=== PATIENT | male | born 1980 | race African-American/Black ===

== ENCOUNTER 2021-08-20 17:42 | Emergency (ER) | payer OTHER ==
[~2021-08-20] VITALS: Ht 172.7 cm; Wt 60.8 kg
[2021-08-20 18:13] LABS: BASO # 0.03 K/mm3 (0.02-0.10); EOS # 0.08 K/mm3 (0.04-0.40); EOS % 0.4 % (0.0-4.0); HEMATOCRIT 44.8 % (42.0-52.0); HEMOGLOBIN 15.1 g/dL (13.5-18.0); LYMPH# 2.27 K/mm3 (1.50-4.00); MEAN CELL VOLUME 100 fl (78-100); MEAN CORPUSCULAR HEMOGLOBIN 34 pg (27-31); MEAN CORPUSCULAR HGB CONC 34 g/dL (33-37); MEAN PLATELET VOLUME 9.3 fl (7.4-10.4); MONO # 1.47 K/mm3 (0.20-0.80); NEU # 15.78 K/mm3 (1.40-6.50); PLATELET COUNT 264 K/mm3 (130-400); RED BLOOD COUNT 4.47 M/mm3 (4.20-5.60); RED CELL DISTRIBUTION WIDTH 12.7 % (11.5-14.5); WHITE BLOOD COUNT 19.7 K/mm3 (4.8-10.8)
[2021-08-20 18:30] LABS: ALBUMIN 4.6 g/dL (3.5-5.0); POTASSIUM 3.4 mmol/L (3.5-5.1); SODIUM 143 mmol/L (136-145)
[2021-08-20 18:33] LABS: GLUCOSE 112 mg/dL (75-110); TOTAL PROTEIN 7.8 g/dL (6.4-8.3)
[2021-08-20 18:34] LABS: CARBON DIOXIDE 18 mmol/L (22-29)
[2021-08-20 18:35] LABS: TOTAL BILIRUBIN 0.3 mg/dL (0.2-1.2)
[2021-08-20 18:38] LABS: AST-SGOT 25 U/L (5-34)
[2021-08-20 18:39] LABS: ALT/SGPT 13 U/L (0-55)
[2021-08-20 18:40] LABS: LIPASE 54 U/L (8-78)
[2021-08-20 18:47] LABS: ALCOHOL IN-HOUSE < 10 mg/dL (<10); TROPONIN-I < 0.030 ng/mL (<0.030)
[2021-08-20 20:02] LABS: URINE APPEARANCE CLEAR; URINE BILIRUBIN NEGATIVE (NEGATIVE); URINE BLOOD 50 ery/uL (NEGATIVE); URINE COLOR YELLOW; URINE GLUCOSE NEGATIVE (NEGATIVE); URINE KETONE NEGATIVE (NEGATIVE); URINE LEUKOCYTE ESTERASE NEGATIVE (NEGATIVE); URINE NITRATE NEGATIVE (NEGATIVE); URINE PROTEIN(semi-quant) 2+ (NEGATIVE); URINE UROBILINOGEN NORMAL (NORMAL)
[2021-08-20 20:03] LABS: URINE MUCUS PRESENT (NOT PRESENT)
[2021-08-21 06:58] LABS: BASO # 0.01 K/mm3 (0.02-0.10); EOS # 0.01 K/mm3 (0.04-0.40); EOS % 0.1 % (0.0-4.0); HEMATOCRIT 38.4 % (42.0-52.0); HEMOGLOBIN 12.9 g/dL (13.5-18.0); LYMPH# 1.95 K/mm3 (1.50-4.00); MEAN CELL VOLUME 102 fl (78-100); MEAN CORPUSCULAR HEMOGLOBIN 34 pg (27-31); MEAN CORPUSCULAR HGB CONC 34 g/dL (33-37); MEAN PLATELET VOLUME 9.4 fl (7.4-10.4); MONO # 1.18 K/mm3 (0.20-0.80); NEU # 10.34 K/mm3 (1.40-6.50); PLATELET COUNT 229 K/mm3 (130-400); RED BLOOD COUNT 3.77 M/mm3 (4.20-5.60); RED CELL DISTRIBUTION WIDTH 12.8 % (11.5-14.5); WHITE BLOOD COUNT 13.5 K/mm3 (4.8-10.8)
[2021-08-21 07:05] LABS: ALBUMIN 3.6 g/dL (3.5-5.0); POTASSIUM 4.5 mmol/L (3.5-5.1)
[2021-08-21 07:07] LABS: CALCIUM 8.4 mg/dL (8.3-10.5)
[2021-08-21 07:10] LABS: TOTAL BILIRUBIN 0.4 mg/dL (0.2-1.2)
[2021-08-21] MEDS ORDERED: DIAZEPAM PO (09:00)
[2021-08-21] MEDS ORDERED: KEPPRA 500MG500 MG PO (09:00)
[2021-08-21 09:03] VITALS: BP 139/74
== END 2021-08-21 09:20 ==
LOC: ED 17:42
PROVIDERS: Nurse Practitioner
DX: S01.01XA Laceration without foreign body of scalp, initial encounter (principal); R25.8 Other abnormal involuntary movements; F16.10 Hallucinogen abuse, uncomplicated; F19.10 Other psychoactive substance abuse, uncomplicated; V49.40XA Driver injured in collision with unspecified motor vehicles in traffic accident, initial encounter; Y92.410 Unspecified street and highway as the place of occurrence of the external cause
CPT/HCPCS: 90715; J2060; J2405; J3480; J7030; Q9967